=== PATIENT | male | born 1965 | race Caucasian/White ===

== ENCOUNTER → 2017-12-29 | Day surgery (SDC) | payer BC ==
[~2017-12-29] MED LIST: BENEFIBER1 EAC1 PO; FENTANYL CITRATE/PF 100MCG/2 ML INJ ONE; MIDAZOLAM HCL 2 MG/2 ML VIAL ONE; NEXIUM40 MG PO; TYLENOL PO; TYLENOL WITH C1 EACH PO
== END | disposition home or self-care (01) ==
LOC: ENDO 08:24
PROVIDERS: ATTEND Internal Medicine Gastroenterology
DX: R12 Heartburn (principal); D12.2 Benign neoplasm of ascending colon; K29.70 Gastritis, unspecified, without bleeding; K63.9 Disease of intestine, unspecified; K57.30 Diverticulosis of large intestine without perforation or abscess without bleeding; K21.9 Gastro-esophageal reflux disease without esophagitis; K44.9 Diaphragmatic hernia without obstruction or gangrene; R15.9 Full incontinence of feces; Z98.84 Bariatric surgery status; G47.33 Obstructive sleep apnea (adult) (pediatric); Z01.810 Encounter for preprocedural cardiovascular examination; Z68.43 Body mass index [BMI] 50.0-59.9, adult; Z80.0 Family history of malignant neoplasm of digestive organs
CPT/HCPCS: 43239; 45380; 45381; 93005; J2250; 43235; 43251; 45378

== ENCOUNTER → 2018-05-04 | Day surgery (SDC) | payer BC ==
[~2018-05-04] MED LIST changes: -FENTANYL CITRATE/PF 100MCG/2 ML INJ ONE; +KETAMINE HCL INJ 50 MG/ML 10 ML VIAL ONE; +LIDOCAINE HCL 2% LOCAL INJ 5 ML SDV VIAL INJ ONE; +PROPOFOL IV EMULSION 10 MG/ML 50 ML VIAL ONE; +XARELTO; +XARELTO20 MG PO
== END | disposition home or self-care (01) ==
LOC: OR 08:32
PROVIDERS: ATTEND Internal Medicine Gastroenterology
DX: K63.9 Disease of intestine, unspecified (principal); Z85.038 Personal history of other malignant neoplasm of large intestine; K57.30 Diverticulosis of large intestine without perforation or abscess without bleeding; K64.8 Other hemorrhoids; Z98.0 Intestinal bypass and anastomosis status; Z90.49 Acquired absence of other specified parts of digestive tract; R79.82 Elevated C-reactive protein (CRP); G47.33 Obstructive sleep apnea (adult) (pediatric); E66.01 Morbid (severe) obesity due to excess calories; D64.9 Anemia, unspecified; I10 Essential (primary) hypertension; Z01.810 Encounter for preprocedural cardiovascular examination; Z79.02 Long term (current) use of antithrombotics/antiplatelets; Z68.43 Body mass index [BMI] 50.0-59.9, adult; Z80.0 Family history of malignant neoplasm of digestive organs
CPT/HCPCS: 45380; 93005; J2001; J2250; 45378

== ENCOUNTER → 2019-09-12 | Day surgery (SDC) | payer BC ==
[~2019-09-12] MED LIST changes: -KETAMINE HCL INJ 50 MG/ML 10 ML VIAL ONE; -LIDOCAINE HCL 2% LOCAL INJ 5 ML SDV VIAL INJ ONE; +METHOCARBAMOL750 MG PO; +ULTRAM50 MG PO
--- OUTSIDE RECORDS SUMMARY | 2019-09-12 14:08 | XMS REPORT ---
Author Author [facility] Address Unknown Phone Unavailable Care Team Providers Care Interactive Art Director Name Role Phone Unavailable Unavailable Payers Payer Name Policy Type Policy Number Effective Date Expiration Date Problems This patient has no known problems. Allergies, Adverse Reactions, Alerts Allergy Name Allergy Type Status Severity Reaction(s) Onset Date Inactive Date Treating Clinician Comments No Known Allergies DA Active U 2019-08-02 00:00:00 ibuprofen DA Active AL 2019-03-04 00:00:00 ibuprofen DA Active AL 2018-09-01 00:00:00 No Known Allergies DA Active U 2018-07-30 00:00:00 ibuprofen DA Active AL 2018-07-30 00:00:00 No Known Allergies DA Active U 2018-03-15 00:00:00 Medications This patient has no known medications. Results Test Description Test Time Test Comments Text Results Atomic Results Result Comments - XR FLUORO FOR SPINE INJ 2019-08-02 17:38:00 Patient Name: JESUS MARKS Unit No: [id number] EXAMS: CPT CODE: [id number] XR FLUORO FOR SPINE INJ 32400 LUMBAR EPIRADICULAR INJECTION REFERRAL PHYSICIAN: Giles Davis M.D. PREOPERATIVE DIAGNOSIS: Lumbar Radiculitis POSTOPERATIVE DIAGNOSIS: L2-3 disc displacement with stenosis status post L2 superior endplate compression fracture with bilateral lower extremity radicular claudication PROCEDURES PERFORMED: Fluoroscopically guided needle localization of the bilateral L2 and bilateral L3 spinal nerves with transforaminal epidurograms and epidural injection of local anesthetic and steroid. FINDINGS: Good flow seen through the foramen with titer flow across the L2-3 segment and moderate anterior epidural displacement. Provocation with injection was negative. Anesthetic response was positive with the patient noting relief of his low back and radiating bilateral lower extremity pain. Preinjection VAS 7/10. Postinjection VAS 0/10. Steroid response pending follow-up. ESTIMATED BLOOD LOSS: Minimal ANESTHESIA: TIVA COMPLICATIONS: None DETAILS OF PROCEDURE: After obtaining stable vital signs, informed consent and IV access, with no contraindications, the patient was taken to the operating room and placed in a prone position with all extremities padded and appropriate monitors placed. The patient was sterilely prepped and draped over the lumbosacral spine. Using fluoroscopic visualization the insertion sites were marked for paravertebral approaches and using standard technique, a 25 gauge needle was advanced to the base of each pedicle without paresthesias. Isovue-300 contrast 0.2 mL of was injected incrementally with frequent negative aspirations to produce each epidurogram. There were no signs of intravascular or intrathecal uptake. Bupivicaine 0.75% 0.25 mL with lidocaine 4% 0.25 mL and Decadron 5 mg was then incrementally injected with frequent negative aspirations and again there were no signs of intravascular or intrathecal uptake. The needles were removed and the patient was taken to the PACU in good condition. at 1218 Reported and signed by: Sy Nick M.D. CC: Technologist: Laura Ramirez(Nael) Transcribed D/ (1779) [facility] [place] NAME: JESUS MARKS [address] [facility] PHYS: Sy Mitchell MD [place], [place] [address] : 1965 AGE: 54 SEX: M LOC: YOLI PHONE #: [phone] EXAM DATE: 08/02/2019 STATUS: REG [facility] FAX #: [phone] RAD #: [id number] D/C DT PAGE 1 Signed Report Patient Name: JESUS MARKS Unit No: [id number] EXAMS: CPT CODE: [id number] XR FLUORO FOR SPINE INJ 12379 <Continued> Orig Print D/T: S: 08/02/2019 (4779) [facility] NAME: JESUS MARKS [address] [facility] PHYS: Sy Mitchell MD [place], [place] [address] : 1965 AGE: 54 SEX: M LOC: YOLI PHONE #: [phone] EXAM DATE: 08/02/2019 STATUS: REG [facility] FAX #: [phone] RAD #: [id number] D/C DT PAGE 2 Signed Report - CT ABD PELVIS W/CONT 2019-06-10 11:07:00 Name: JESUS MARKS [place] : 1965 Age/S: 54 / M [address] [place] [address] Blvd Unit #: [id number] Loc: [place] [address] Phys: Tong Watson MD Acct: [id number] Dis Date: Status: REG CLI PHONE #: [phone] Exam Date: 06/10/2019812 FAX #: [phone] Reason: C18.0 COLON CANCER EXAMS: CPT CODE: [id number] CT ABD PELVIS W/CONT 96289 CT CHEST WITHOUT IV CONTRAST. ALSO, ABDOMEN AND PELVIS WITH IV CONTRAST AND MULTIPLANAR REFORMATS 06/10/2019. INDICATION: Malignant neoplasm of cecum. Follow-up. COMPARISON: Chest, abdomen and pelvis CT 01/18/2019, chest CT 06/23/[address] 01/14/2018. Reference is also made to [facility] chest/abdomen/pelvis CT 08/19/[address] 02/11/2018 TECHNIQUE: Full and complete 3 mm thick axial images of the chest were obtained without IV contrast. The acquired data was used to create multiplanar reformatted images and 1 mm thick axial lung window reconstructions. Also, full and complete contrast enhanced abdominal helical imaging was performed diaphragm through the symphysis with multiplanar reformations obtained. IV CONTRAST: 100 mL Isovue-300. GI CONTRAST: 10 mL Gastrografin diluted in water. DLP: 3618.2 mGy-cm. FINDINGS: CHEST CT NONCONTRAST: Clear lungs with stable 5-6 mm perifissural right middle lobe nodule dating back to at least January 2018 (series 4, image 142). No new pulmonary nodules or masses. No bronchiectasis or cavitation. No pleural fluid. Severe thoracic spondylosis without destructive bone lesions. Probable prior right rotator cuff repair to be correlated with history. ABDOMEN/PELVIS CT WITH IV CONTRAST: SOLID ORGANS: No abnormal enhancing lesions are seen in the liver, spleen, pancreas, right adrenal gland or left kidney. Stable 12 mm exophytic nodule arising from the lateral limb of the left adrenal gland. This has been previously characterized as a lipid poor adenoma. Hypodense 2.4 cm right upper pole renal cyst, also stable. Absent gallbladder. BOWEL: Healed right hemicolectomy without anastomotic complication. No metachronous tumors. Nonobstructive bowel gas pattern. Prior vertical sleeve gastroplasty. PERITONEUM: No free intraperitoneal fluid or air. Distally scarred recanalized SMV. RETROPERITONEUM: No adenopathy. Moderate aortoiliac calcification without aneurysm. PAGE 1 Signed Report (CONTINUED) Name: JESUS MARKS [facility] [place] : 1965 Age/S: 54 / M [address] [place] [address] Unit #: [id number] Loc: [place] [address] Phys: Tong Watson MD Acct: [id number] Dis Date: Status: REG CLI PHONE #: [phone] Exam Date: 06/10/2019 0813 FAX #: [phone] Reason: C18.0 COLON CANCER EXAMS: CPT CODE: [id number] CT ABD PELVIS W/CONT 33915 <Continued> PELVIS: No pelvic mass. The urinary bladder is normal. MUSCULOSKELETAL: Severe lumbosacral spondylosis without destructive bone lesions. Chronic compression fracture of L2 without retropulsion. Moderate bilateral hip osteoarthritis. IMPRESSION: 1. Healed right hemicolectomy and anastomosis without anastomotic recurrence or metachronous lesions. 2. Stable 5-6 mm perifissural nodule in the right middle lobe dating back to at least January 2018. Recommend continued follow-up during patient's routine oncologic surveillance to complete a two-year interval of stability. 3. Otherwise no signs of metastatic disease in the chest, abdomen or pelvis. 4. Stable right renal cyst and lipid poor left adrenal adenoma. 5. Cholecystectomy and gastric sleeve gastroplasty. 6. Stable chronic L2 compression fracture. 7. Atherosclerosis. ____ CT imaging performed at this location utilizes radiation dose optimization techniques which include one or more of the following: - Automated exposure control -Adjustment of the mA and/or kV according to patient size -Use of iterative reconstruction technique SL: ER-H at 1107 Reported and signed by: Nadeem Muñoz M.D. CC: Tong Watson MD Technologist:Murphy Lindsey, RT(R) CTDI: DLP: Trnscb Date/Time: 06/10/2019 (1107) [email or web address] Orig Print D/T: S: 06/10/2019 (5849) PAGE 2 Signed Report - CT CHEST W/O CONTRAST 2019-06-10 11:07:00 Name: JESUS MARKS [facility] : 1965 Age/S: 54 / M [address] [place] [address] Blvd Unit #: [id number] Loc: [place] [address] Phys: Tong Watson MD Acct: [id number] Dis Date: Status: REG CLI PHONE #: [phone] Exam Date: 06/10/2019812 FAX #: [phone] Reason: C18.0 COLON CANCER EXAMS: CPT CODE: [id number] CT CHEST W/O CONTRAST 18446 CT CHEST WITHOUT IV CONTRAST. ALSO, ABDOMEN AND PELVIS WITH IV CONTRAST AND MULTIPLANAR REFORMATS 06/10/2019. INDICATION: Malignant neoplasm of cecum. Follow-up. COMPARISON: Chest, abdomen and pelvis CT 01/18/2019, chest CT 06/23/[address] 01/14/2018. Reference is also made to [facility] chest/abdomen/pelvis CT 08/19/[address] 02/11/2018 TECHNIQUE: Full and complete 3 mm thick axial images of the chest were obtained without IV contrast. The acquired data was used to create multiplanar reformatted images and 1 mm thick axial lung window reconstructions. Also, full and complete contrast enhanced abdominal helical imaging was performed diaphragm through the symphysis with multiplanar reformations obtained. IV CONTRAST: 100 mL Isovue-300. GI CONTRAST: 10 mL Gastrografin diluted in water. DLP: 3618.2 mGy-cm. FINDINGS: CHEST CT NONCONTRAST: Clear lungs with stable 5-6 mm perifissural right middle lobe nodule dating back to at least January 2018 (series 4, image 142). No new pulmonary nodules or masses. No bronchiectasis or cavitation. No pleural fluid. Severe thoracic spondylosis without destructive bone lesions. Probable prior right rotator cuff repair to be correlated with history. ABDOMEN/PELVIS CT WITH IV CONTRAST: SOLID ORGANS: No abnormal enhancing lesions are seen in the liver, spleen, pancreas, right adrenal gland or left kidney. Stable 12 mm exophytic nodule arising from the lateral limb of the left adrenal gland. This has been previously characterized as a lipid poor adenoma. Hypodense 2.4 cm right upper pole renal cyst, also stable. Absent gallbladder. BOWEL: Healed right hemicolectomy without anastomotic complication. No metachronous tumors. Nonobstructive bowel gas pattern. Prior vertical sleeve gastroplasty. PERITONEUM: No free intraperitoneal fluid or air. Distally scarred recanalized SMV. RETROPERITONEUM: No adenopathy. Moderate aortoiliac calcification without aneurysm. PAGE 1 Signed Report (CONTINUED) Name: JESUS MARKS [facility] : 1965 Age/S: 54 / M [address] [place] [address] Unit #: [id number] Loc: [place] [address] Phys: Tong Watson MD Acct: [id number] Dis Date: Status: REG CLI PHONE #: [phone] Exam Date: 06/10/2019 08 FAX #: [phone] Reason: C18.0 COLON CANCER EXAMS: CPT CODE: [id number] CT CHEST W/O CONTRAST 16094 <Continued> PELVIS: No pelvic mass. The urinary bladder is normal. MUSCULOSKELETAL: Severe lumbosacral spondylosis without destructive bone lesions. Chronic compression fracture of L2 without retropulsion. Moderate bilateral hip osteoarthritis. IMPRESSION: 1. Healed right hemicolectomy and anastomosis without anastomotic recurrence or metachronous lesions. 2. Stable 5-6 mm perifissural nodule in the right middle lobe dating back to at least January 2018. Recommend continued follow-up during patient's routine oncologic surveillance to complete a two-year interval of stability. 3. Otherwise no signs of metastatic disease in the chest, abdomen or pelvis. 4. Stable right renal cyst and lipid poor left adrenal adenoma. 5. Cholecystectomy and gastric sleeve gastroplasty. 6. Stable chronic L2 compression fracture. 7. Atherosclerosis. ____ CT imaging performed at this location utilizes radiation dose optimization techniques which include one or more of the following: - Automated exposure control -Adjustment of the mA and/or kV according to patient size -Use of iterative reconstruction technique SL: ER-H at 1107 Reported and signed by: Nadeem Muñoz M.D. CC: Tong Watson MD Technologist:Murphy Lindsey, (R) CTDI: DLP: Trnscb Date/Time: 06/10/2019 (1107) [email or web address] Orig Print D/T: S: 06/10/2019 (5892) PAGE 2 Signed Report - XR FLUORO FOR SPINE INJ 2019-03-04 16:58:00 Patient Name: JESUS MARKS Unit No: [id number] EXAMS: CPT CODE: [id number] XR FLUORO FOR SPINE INJ 55098 LUMBAR EPIRADICULAR INJECTION REFERRAL PHYSICIAN: Giles Davis M.D. PREOPERATIVE DIAGNOSIS: Lumbar Radiculitis POSTOPERATIVE DIAGNOSIS: L2-3 spinal stenosis with bilateral lower extremity radicular pain PROCEDURES PERFORMED: Fluoroscopically guided needle localization of the bilateral L2 and bilateral L3 spinal nerves with transforaminal epidurograms and epidural injection of local anesthetic and steroid. FINDINGS: Fairly good flow seen through all foramen with waist-like narrowing and anterior epidural displacement across the L2-3 disc. Provocation with injection was negative. Anesthetic response was positive with the patient noting complete relief of his radiating bilateral lower extremity pain. Preinjection VAS 7/10. Postinjection VAS 0/10. Steroid response pending follow-up. ESTIMATED BLOOD LOSS: Minimal ANESTHESIA: TIVA COMPLICATIONS: None DETAILS OF PROCEDURE: After obtaining stable vital signs, informed consent and IV access, with no contraindications, the patient was taken to the operating room and placed in a prone position with all extremities padded and appropriate monitors placed. The patient was sterilely prepped and draped over the lumbosacral spine. Using fluoroscopic visualization the insertion sites were marked for paravertebral approaches and using standard technique, a 25 gauge 8 inch needle was advanced to the base of each pedicle without paresthesias. Isovue-300 contrast 0.2 mL of was injected incrementally with frequent negative aspirations to produce each epidurogram. There were no signs of intravascular or intrathecal uptake. Bupivicaine 0.75% 0.25 mL with lidocaine 4% 0.25 mL and Decadron 5 mg was then incrementally injected with frequent negative aspirations and again there were no signs of intravascular or intrathecal uptake. The needles were removed and the patient was taken to the PACU in good condition. at 3246 Reported and signed by: Sy Nick M.D. CC: Sy Nick MD Technologist: OTIS LOVE(R) Transcribed D/ (1478) [facility] NAME: JESUS MARKS [address] [facility] PHYS: Sy Mitchell MD [place], [place] [address] : 1965 AGE: 53 SEX: M LOC: YOLI PHONE #: [phone] EXAM DATE: 03/04/2019 STATUS: REG [facility] FAX #: [phone] RAD #: [id number] D/C DT PAGE 1 Signed Report Patient Name: JESUS MARKS Unit No: [id number] EXAMS: CPT CODE: [id number] XR FLUORO FOR SPINE INJ 00723 <Continued> Orig Print D/T: S: 03/04/2019 (6687) [facility] NAME: JESUS MARKS [address] [facility] PHYS: Sy Mitchell MD [place], [place] [address] : 1965 AGE: 53 SEX: M LOC: YOLI PHONE #: EXAM DATE: 03/04/2019 STATUS: REG SDC FAX #: [phone] RAD #: [id number] D/C DT PAGE 2 Signed Report - CT ABD PELVIS W/CONT 2019-01-18 10:58:00 Name: JESUS MARKS [place] : 1965 Age/S: 53 / M [address] [place] [address] Blvd Unit #: [id number] Loc: [place] [address] Phys: Tong Watson MD Acct: [id number] Dis Date: Status: REG CLI PHONE #: [phone] Exam Date: 01/18/2019833 FAX #: [phone] Reason: C18.0 MALIGNANT NEOPLASM OF CECUM EXAMS: CPT CODE: [id number] CT ABD PELVIS W/CONT 88222 CT CHEST, ABDOMEN AND PELVIS WITH CONTRAST AND MULTIPLANAR REFORMATS 01/18/2019. INDICATION: Malignant neoplasm of cecum. Follow-up. COMPARISON: Chest, abdomen and pelvis CT 06/23/[address] studies from 02/19/2018 and 01/14/2018. TECHNIQUE: Helical imaging was performed diaphragm through the symphysis with axial and coronal reformations obtained. IV CONTRAST: 100 mL Isovue-300. GI CONTRAST: 10 mL Gastrografin diluted in water. D LP: 1418 mGy-cm FINDINGS: CHEST: Noncalcified 5 mm intrapulmonary lymph node along the lateral aspect of the right horizontal fissure. This appears stable accounting for slight differences in slice position. No additional pulmonary nodules or masses are noted. No pleural effusion or pneumothorax. Severe multivessel coronary atherosclerosis. No pericardial thickening or effusion. No hilar or mediastinal adenopathy. Moderate to severe thoracic spondylosis without destructive bone lesions. SOLID ORGANS: Accounting for partial dilution of the contrast bolus and scattered artifact given the patient's large body habitus, no gross enhancing lesions are seen in the liver, spleen, pancreas or right adrenal gland. Stable circumscribed 12 mm left adrenal nodule. Stable 19 mm hypodense right renal lesion. Absent gallbladder. BOWEL: Healing right hemicolectomy and anastomosis without anastomotic complication. No metachronous colonic lesions. Moderate volume colonic fecal material. Normal caliber small bowel. Vertical sleeve gastroplasty with no visible complication. PERITONEUM: No free intraperitoneal fluid or air. No adenopathy or peritoneal implants. There is interval continued scarring of the mid and distal branches of the previously thrombosed SMV with probable recanalization of the proximal segment. Patent splenoportal circulation. RETROPERITONEUM: No adenopathy. Mild to moderate aortoiliac calcification without aneurysm. PELVIS: Limited by streak artifact from the patient's hips. No gross PAGE 1 Signed Report (CONTINUED) Name: JESUS MARKS [facility] : 1965 Age/S: 53 / M [address] [place] [address] Blvd Unit #: [id number] Loc: [place] [address] Phys: Tong Watson MD Acct: [id number] Dis Date: Status: REG CLI PHONE #: [phone] Exam Date: 01/18/2019 0834 FAX #: [phone] Reason: C18.0 MALIGNANT NEOPLASM OF CECUM EXAMS: CPT CODE: [id number] CT ABD PELVIS W/CONT 69011 <Continued> abnormalities identified. MUSCULOSKELETAL: Severe thoracolumbar/lumbosacral spondylosis with severe facet arthrosis and stable superior endplate compression fracture of L2 showing no retropulsion. Moderate bilateral hip osteoarthritis. No destructive bone lesion. IMPRESSION: 1. Healed right hemicolectomy and anastomosis with no anastomotic recurrence or complication. No metachronous colonic lesions. 2. Right fissural in trapulmonary lymph node, probably corresponding to the previously described nodular lesion and essentially stable. No additional lung nodules. 3. Otherwise no signs of metastatic disease to the chest, abdomen or pelvis. 4. Cholecystectomy and vertical sleeve gastroplasty. 5. Stable left adrenal nodule, previously characterized as a lipid poor adenoma. 6. Stable right renal hypodensity, incompletely characterized. 7. Scar, recanalized chronic SMV thrombosis. No bowel venous infarction. 8. Polyarticular degenerative change with chronic superior L2 compression fracture. 9. Atherosclerosis. ____ CT imaging performed at this location utilizes radiation dose optimization techniques which include one or more of the following: - Automated exposure control -Adjustment of the mA and/or kV according to patient size -Use of iterative reconstruction technique SL: ER-H at 1058 Reported and signed by: Nadeem Muñoz M.D. PAGE 2 Signed Report (CONTINUED) Name: JESUS MARKS [place] : 1965 Age/S: 53 / M [address] [place] [address] Unit #: [id number] Loc: [place] [address] Phys: Tong Watson MD Acct: [id number] Dis Date: Status: REG CLI PHONE #: [phone] Exam Date: 01/18/2019 0834 FAX #: [phone] Reason: C18.0 MALIGNANT NEOPLASM OF CECUM EXAMS: CPT CODE: [id number] CT ABD PELVIS W/CONT 71989 <Continued> CC: Tong Watson MD Technologist:Swapnil Gallegos, RT(R)(CT) CTDI: DLP: Trnscb Date/Time: 01/18/2019 (1058) [email or web address] Orig Print D/T: S: 01/18/2019 (1101) CTDI: DLP: PAGE 3 Signed Report - CT CHEST W/CONTRAST 2019-01-18 10:58:00 Name: JESUS MARKS [place] : 1965 Age/S: 53 / M [address] [place] [address] Unit #: [id number] Loc: [place] [address] Phys: Tong Watson MD Acct: [id number] Dis Date: Status: REG CLI PHONE #: [phone] Exam Date: 01/18/2019 0834 FAX #: [phone] Reason: LUNG NODULE -F/U EXAMS: CPT CODE: [id number] CT CHEST W/CONTRAST 66463 CT CHEST, ABDOMEN AND PELVIS WITH CONTRAST AND MULTIPLANAR REFORMATS 01/18/2019. INDICATION: Malignant neoplasm of cecum. Follow-up. COMPARISON: Chest, abdomen and pelvis CT 06/23/[address] studies from 02/19/2018 and 01/14/2018. TECHNIQUE: Helical imaging was performed diaphragm through the symphysis with axial and coronal reformations obtained. IV CONTRAST: 100 mL Isovue-300. GI CONTRAST: 10 mL Gastrografin diluted in water. D LP: 1418 mGy-cm FINDINGS: CHEST: Noncalcified 5 mm intrapulmonary lymph node along the lateral aspect of the right horizontal fissure. This appears stable accounting for slight differences in slice position. No additional pulmonary nodules or masses are noted. No pleural effusion or pneumothorax. Severe multivessel coronary atherosclerosis. No pericardial thickening or effusion. No hilar or mediastinal adenopathy. Moderate to severe thoracic spondylosis without destructive bone lesions. SOLID ORGANS: Accounting for partial dilution of the contrast bolus and scattered artifact given the patient's large body habitus, no gross enhancing lesions are seen in the liver, spleen, pancreas or right adrenal gland. Stable circumscribed 12 mm left adrenal nodule. Stable 19 mm hypodense right renal lesion. Absent gallbladder. BOWEL: Healing right hemicolectomy and anastomosis without anastomotic complication. No metachronous colonic lesions. Moderate volume colonic fecal material. Normal caliber small bowel. Vertical sleeve gastroplasty with no visible complication. PERITONEUM: No free intraperitoneal fluid or air. No adenopathy or peritoneal implants. There is interval continued scarring of the mid and distal branches of the previously thrombosed SMV with probable recanalization of the proximal segment. Patent splenoportal circulation. RETROPERITONEUM: No adenopathy. Mild to moderate aortoiliac calcification without aneurysm. PELVIS: Limited by streak artifact from the patient's hips. No gross PAGE 1 Signed Report (CONTINUED) Name: JESUS MARKS [facility] : 1965 Age/S: 53 / M [address] [place] [address] Unit #: [id number] Loc: [place] [address] Phys: Tong Watson MD Acct: [id number] Dis Date: Status: REG CLI PHONE #: [phone] Exam Date: 01/18/2019 0834 FAX #: [phone] Reason: LUNG NODULE -F/U EXAMS: CPT CODE: [id number] CT CHEST W/CONTRAST 78861 <Continued> abnormalities identified. MUSCULOSKELETAL: Severe thoracolumbar/lumbosacral spondylosis with severe facet arthrosis and stable superior endplate compression fracture of L2 showing no retropulsion. Moderate bilateral hip osteoarthritis. No destructive bone lesion. IMPRESSION: 1. Healed right hemicolectomy and anastomosis with no anastomotic recurrence or complication. No metachronous colonic lesions. 2. Right fissural in trapulmonary lymph node, probably corresponding to the previously described nodular lesion and essentially stable. No additional lung nodules. 3. Otherwise no signs of metastatic disease to the chest, abdomen or pelvis. 4. Cholecystectomy and vertical sleeve gastroplasty. 5. Stable left adrenal nodule, previously characterized as a lipid poor adenoma. 6. Stable right renal hypodensity, incompletely characterized. 7. Scar, recanalized chronic SMV thrombosis. No bowel venous infarction. 8. Polyarticular degenerative change with chronic superior L2 compression fracture. 9. Atherosclerosis. ____ CT imaging performed at this location utilizes radiation dose optimization techniques which include one or more of the following: - Automated exposure control -Adjustment of the mA and/or kV according to patient size -Use of iterative reconstruction technique SL: ER-H at 1058 Reported and signed by: Nadeem Muñoz M.D. PAGE 2 Signed Report (CONTINUED) Name: JESUS MAKRS [facility] : 1965 Age/S: 53 / M [address] [place] [address] Unit #: [id number] Loc: [place] [id number] Phys: Tong Watson MD Acct: [id number] Dis Date: Status: REG CLI PHONE #: [phone] Exam Date: 01/18/2019 0834 FAX #: [phone] Reason: LUNG NODULE -F/U EXAMS: CPT CODE: [id number] CT CHEST W/CONTRAST [id number] <Continued> CC: Tong Watson MD Technologist:Swapnil Gallegos, RT(R)(CT) CTDI: DLP: Trnscb Date/Time: 01/18/2019 (1058) [email or web address] Orig Print D/T: S: 01/18/2019 (1101) CTDI: DLP: PAGE 3 Signed Report
[2019-09-12 16:15] VITALS: BP 153/96
== END | disposition home or self-care (01) ==
LOC: OR 14:06
PROVIDERS: ATTEND Internal Medicine Gastroenterology
DX: Z12.11 Encounter for screening for malignant neoplasm of colon (principal); K57.30 Diverticulosis of large intestine without perforation or abscess without bleeding; K64.8 Other hemorrhoids; G47.33 Obstructive sleep apnea (adult) (pediatric); I10 Essential (primary) hypertension; E66.2 Morbid (severe) obesity with alveolar hypoventilation; Z01.810 Encounter for preprocedural cardiovascular examination; Z68.43 Body mass index [BMI] 50.0-59.9, adult; Z90.49 Acquired absence of other specified parts of digestive tract; Z85.038 Personal history of other malignant neoplasm of large intestine; Z80.0 Family history of malignant neoplasm of digestive organs
CPT/HCPCS: 45380; 93005; J2250; J2704

== ENCOUNTER → 2021-10-22 | Day surgery (SDC) | payer BC ==
[~2021-10-22] MED LIST changes: +FENTANYL CITRATE/PF 100MCG/2 ML INJ ONE; +GLUCAGON FOR INJ 1 MG VIAL ONE; +LIDOCAINE HCL 2% LOCAL INJ 5 ML SDV VIAL INJ ONE; +LOSARTAN POTASS25 MG PO; +METOCLOPRAMIDE HCL 10 MG/2ML VIAL ONE; +PROPOFOL IV EMULSION 10 MG/ML 20 ML VIAL ONE; -PROPOFOL IV EMULSION 10 MG/ML 50 ML VIAL ONE
[2021-10-22 11:30] VITALS: BP 114/77
== END | disposition home or self-care (01) ==
LOC: OR 08:01
PROVIDERS: ATTEND Internal Medicine Gastroenterology
DX: Z08 Encounter for follow-up examination after completed treatment for malignant neoplasm (principal); Z85.038 Personal history of other malignant neoplasm of large intestine; D12.3 Benign neoplasm of transverse colon; K64.8 Other hemorrhoids; Z98.0 Intestinal bypass and anastomosis status; Z90.49 Acquired absence of other specified parts of digestive tract; G47.33 Obstructive sleep apnea (adult) (pediatric); Z98.84 Bariatric surgery status; I10 Essential (primary) hypertension; Z88.8 Allergy status to other drugs, medicaments and biological substances; Z91.018 Allergy to other foods; Z91.048 Other nonmedicinal substance allergy status; Z01.810 Encounter for preprocedural cardiovascular examination; Z01.812 Encounter for preprocedural laboratory examination; Z20.822 Contact with and (suspected) exposure to COVID-19; Z79.02 Long term (current) use of antithrombotics/antiplatelets; Z79.899 Other long term (current) drug therapy; Z80.0 Family history of malignant neoplasm of digestive organs
CPT/HCPCS: 45380; 45384; 93005; J1610; J2001; J2250; J2704; J2765; J3010; U0002; 45378